=== PATIENT | male | born 1955 | race Caucasian/White ===

== ENCOUNTER 2020-06-02 15:10 | Emergency (ER) | payer OTHER ==
[~2020-06-02 15:10] MED LIST: Iopamidol-370 76% 500 ML 1 ML ONE
[2020-06-02 16:17] LABS: #Eosinphils 0.1 thou/uL (0.0-0.7); #Lymphocytes 0.2 thou/uL (1.20-3.40); #Monocytes 0.4 thou/uL (0.11-0.59); #Neutrophils 2.6 thou/uL (1.40-6.50); %Basophils 0.6 % (0.0-1.0); %Lymphocytes 6.3 % (21.0-51.0); %Monocytes 13.3 % (0.0-10.0); %Neutrophils 77.8 % (42.0-75.0); Hemoglobin 10.4 g/dL (14.0-18.0); Mean Corpuscular HGB CONC 31.9 g/dL (32.0-36.0); Mean Corpuscular Volume 90.9 fL (78.0-98.0); Platelet Count 91 thou/uL (130-400); RBC Distribution Width 16.3 % (11.5-14.5); Red Blood Cell (RBC) Count 3.58 mill/uL (4.70-6.10); White Blood Cell (WBC) Count 3.3 thou/uL (4.8-10.8)
[2020-06-02 16:18] LABS: INR-International Normal Ratio 1.2; PTT 34.6 sec (22.9-36.1); Prothrombin Time 15.2 sec (12.0-14.7)
[2020-06-02 16:24] LABS: Bilirubin Negative (Negative); Blood, Urine Negative (Negative); Clarity Clear (Clear); Glucose, Urine (Dipstick) Normal (Negative); Ketone, Urine Negative (Negative); Leukocyte Negative Leu/uL (Negative); Nitrite Negative (Negative); Protein, Urine (Dipstick) 10 mg/dL (Neg-Trace); Specific Gravity, Urine 1.024 (1.002-1.036); Urobilinogen Normal mg/dL (Less than 2)
[2020-06-02 16:31] LABS: ALT (SGPT) 35 U/L (8-55); AST (SGOT) 49 U/L (5-34); Albumin 3.3 g/dL (3.4-4.8); Alkaline Phosphatase 167 U/L (40-110); Anion Gap 14 mmol/L (10-20); BUN (Urea Nitrogen) 33 mg/dL (8.4-25.7); Bilirubin, Total 0.9 mg/dL (0.2-1.2); Calc. Creatinine Clearance 0 mL/min (70-130); Calcium 9.1 mg/dL (7.8-10.44); Carbon Dioxide 19 mmol/L (23-31); Chloride 108 mmol/L (98-107); Estimated GFR-MDRD 41; Globulin 3.9 g/dL (2.4-3.5); Glucose 115 mg/dL (80-115); Potassium 4.6 mmol/L (3.5-5.1); Protein, Total 7.2 g/dL (5.8-8.1); Sodium 136 mmol/L (136-145)
[2020-06-02 16:36] LABS: Anisocytosis SLIGHT = 6-15 cells (100X) (0-5/hpf); MDiff Complete? YES; Ovalocytes SLIGHT = 2-5 cells (100X) (0-1/hpf); Platelet Morphology Comment Appears Decreased; Polychromasia SLIGHT = 2-3 cells (100X) (0-2/hpf)
[2020-06-02] MEDS ORDERED: Ondansetron PF 4 MG/2 ML Vial ONE ×2 (18:53→21:30)
[2020-06-02] MEDS ORDERED: Morphine 4 MG/ML VIAL ONE ×2 (18:53→21:25)
--- NOTE | 2020-06-02 19:44 | CT ---
CT ABDOMEN AND PELVIS WITH IV CONTRAST: 06/02/20 INDICATION: Abdominal pain. There are no comparison exams. FINDINGS: Images through the lung base show large right pleural effusion with right lower lobe compressive atel ectasis. Small volume ascites seen in the upper abdomen and pelvis. The liver shows irregular margins with jewels e heterogeneity consistent with cirrhosis. There is mild splenomegaly and venous varices consistent w ith portal hypertension. Pancreas is unremarkable. There is mild nonspecific distention of small bowel loops with nonspecific mural thickening possibly related to the ascites. There is stool throughout the colon. Prominent stool in the sigmoid and rectu m may indicate constipation or early fecal impaction. Urinary bladder is contracted with Gonzales catheter. The kidneys are unremarkable. There is no hydronephrosis. Both kidneys show symmetric function. Aorta is normal caliber. No soft tissue mass or adenopathy. Review of the osseous structures show numerous compression deformities involving the T12 vertebra and all the visualized lumbar vertebrae. There is abnormal mottled densities involving the visualized femurs. This involves both femoral heads and necks and proximal femurs and there is scattered mottled densities involving the pelvis. IMPRESSION: 1. Moderate sized right pleural effusion with right lower lobe compressive atelectasis. 2. Low volume ascites. 3. Findings consistent with cirrhosis and portal hypertension as described. 4. Nonspecific small bowel distention and mural thickening probably related to the ascites. 5. Large volume stool throughout the colon as described. 6. Diffuse mottled density of the osseous structures with compression deformities involving the lumbar vertebrae. Consider process such as multiple myeloma or metastasis. POS: [facility]
== END 2020-06-02 21:54 | disposition short-term general hospital (02) ==
LOC: ERS 15:10
DX: M48.56XA Collapsed vertebra, not elsewhere classified, lumbar region, initial encounter for fracture (principal); J90 Pleural effusion, not elsewhere classified; E11.40 Type 2 diabetes mellitus with diabetic neuropathy, unspecified
CPT/HCPCS: 36415; 51702; 74177; 80053; 81003; 82140; 85025; 85610; 85730; 87086; 96361; 96374; 96375; 96376; J2270; J2405; Q9967